=== PATIENT | male | born 1955 | race Caucasian/White ===

== ENCOUNTER 2017-12-26 18:39 | Inpatient (IN) ==
--- NOTE | 2017-12-26 16:47 | History & Physical Report ---
History of Present Illness Date: 12/26/17 (PCP: Kyleigh) Chief complaint: Heart burn HPI: HPI-PCP Notes 62-year-old male here today with his complaining of one-week history of heartburn when he lays flat at night initially, then now at all time. She has tried OTC Nexium with minimal improvement. This pain is located on the sternum with radiation to right neck and also right arm. Denies any nausea vomiting no diaphoresis, no lightheadedness, no dizziness, no syncope presyncope. Denies any fever but has some chills. Patient has a long history of smoking. He has chronic cough, however, is coughing over the last 2-3 weeks is more pronounced with yellowish thick sputum production without any blood. Plan Because of his age, sex, diabetes mellitus, dyslipidemia as well as history of smoking, there was concern for possible cardiac( multiple risk factors for CAD) or pulmonary etiologies, therefore, he was sent the [facility] lab for D Dimer and troponin I . EKG T (non-specific) wave changes in inferior leads ( III,aVF), no old EKG for comparison. Plan Detail lab report came back later as troponin I elevated at 8.04. Pt was called at home and instructed to go to [facility] for direct admission to ICU. Discussed this case with Dr. Koenig and Jose Guadalupe Admission Hospitalist Mr. Sandoval is a 62 yo male who presented to his PCP's office today due to c/o persistent heartburn with radiation into the right arm. Due to the significantly elevated troponin, he will be admitted to the ICU for further workup. He does have significant risk factors for CAD, including family history , extensive smoking history, DM2, and hyperlipidemia. He is noted to have been admitted for r/o ACS in 2007, and was subsequently transferred to [facility] for a heart cath. Echo here at that time was unremarkable, but did show some LVH. His heart cath was reportedly negative at that time, and he was recommended to stop smoking. He reports about 10 days ago, he started having severe "heartburn." He reports radiation into his right arm, and into his right ear and jaw. He states that his worse pain was about 2 days ago, when he was unable to sleep and drank most of a bottle of Pepto-Bismol that night. He has been taking some OTC heartburn relief -Zantac- without any changes in his symptoms. His pain is quite a bit better, but he continues to have some left substernal chest discomfort at times. No N/V. No diaphoresis. He does have a productive cough, which is a bit worse than normal. He denies diagnosis of COPD or asthma, but reports he was hospitalized for "allergies" multiple times as a child. He does use an inhaler (albuterol) at home, and also has a nebulizer. 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 No definite fever, but reports that he was chilling at night over the last two nights. She states he has been exposed to strep throat, but pt. does not c/ o a sore throat or other symptoms c/w strep. He does not have any LE edema or abdominal distention. He has been admitted to the CCU for further evaluation and treatment. An EKG was obtained while I was at bedside, with no evidence of a STEMI that I can appreciate. His was present and provided collateral information. Review of Systems All systems PM: 10-point ROS was reviewed, no additional remarkable complaints except - Constitutional Constitutional: Present: chills. Absent: fever(s) - EENMT Ears: Present: ear pain Nose: Present: allergies Mouth/Throat: Absent: sore throat - Cardiovascular Cardiovascular: Present: chest pain. Absent: syncope, dyspnea on exertion, orthopnea, edema Rhythm: Present: regular rhythm - Respiratory Respiratory: Present: cough, wheezing, chest congestion, excessive phlegm production (Yellow) - Gastrointestinal Gastrointestinal: Present: change in bowel habits (Alternating constipation, diarrhea. Increase in flatulence), constipation, diarrhea, dyspepsia. Absent: abdominal pain, dysphagia, nausea, vomiting - Genitourinary Genitourinary: Present: urinary incontinence (Stress incontinence), urinary urgency - Musculoskeletal Musculoskeletal: Present: neck pain (Right side). Absent: back pain - Psychiatric Psychiatric: Present: mood swings (reported by . ) Past Medical History Medical History: Medical History Diabetes mellitus (Chronic) Hypercholesterolemia (Chronic) Allergic rhinitis (Chronic) Depression (Chronic) Medical History Updates: GERD. Mood DO. Chronic tobaccoism. Prostate CA (no chemo/XRT). Proteinuria Surgical History: L knee arthroscopy. T&A as a child. 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) Current residence: Apartment/Private Home Medications Home Medications Medication Instructions Recorded Confirmed Type Flonase (Fluticasone) 50 mcg nasal 2 spray INTRANASAL DAILY g 02/09/17 History spray blood sugar diagnostic strips See Dose Instructions .ROUTE 02/09/17 10/24/17 History .MEDSUPPLY clotrimazole-betamethasone 1 1 applicatio TOP BID #15 g 02/09/17 10/24/17 Rx %-0.05 % topical cream Zyrtec (Cetirizine) 10 mg tablet 10 mg PO DAILY #0 tab 06/07/17 10/24/17 History lisinopril 5 mg tablet 5 mg PO DAILY #90 tab 10/24/17 Rx aspirin 81 mg tablet,delayed 81 mg PO DAILY 12/03/17 12/03/17 History release bupropion HCl 100 mg tablet 100 mg PO .qd #30 tab 12/03/17 12/03/17 Rx canagliflozin 100 mg tablet 100 mg PO QAM #30 tab 12/05/17 Rx Glucophage (metformin) 1,000 mg 1,000 mg PO .COMPLEX #75 tab 12/16/17 Rx tablet Zocor (simvastatin) 40 mg tablet 20 mg PO PM #90 tab 12/16/17 Rx lithium carbonate 300 mg capsule 300 mg PO DAILY #30 cap 12/16/17 Rx albuterol sulfate HFA 90 2 puff INH QID 5 Days #8.5 g 12/26/17 12/26/17 Rx mcg/actuation aerosol inhaler Allergies Allergy/AdvReac Type Severity Reaction Status Date / Time No Known Drug Allergies Allergy Unknown Verified 12/15/15 16:23 Exam Telemetry Rhythm: Sinus Rhythm (nonspecific ST changes on EKG) - Constitutional Present: mild distress, average body habitus, cooperative (Irritable), other ( Smells very strongly of cigarette smoke) - Routine HEENT Exam Head: Present: normocephalic, atraumatic Eye: Present: EOMI, PERRL ENT: Present: mucous membranes dry. Absent: TM's clear bilaterally (Right TM very red, chronic abnormal. Possible effusion, but difficult to visualize) - Routine Neck Exam Present: supple, trachea midline. Absent: JVD, carotid bruit, tenderness, swelling - Routine Respiratory Exam Present: dyspnea (Mildly SOA with cough. Persistent, hacky cough-productive), wheezes (Faint wheezes, scattered. ). Absent: crackles - Routine Cardiovascular Exam Present: RRR, S1, S2, no murmur - Routine Abdominal Exam Present: soft, normoactive bowel sounds, non distended, non tender - Routine Extremities Exam Present: no edema, non tender, pulses intact, normal capillary refill - Routine Skin Exam Present: intact, dry, warm - Routine Neurological Exam Present: alert, oriented X3, moving all extremities, normal speech. Absent: motor deficit, altered mental status, facial asymmetry - Routine Psychiatric Exam Present: normal affect, normal thought process (Irritable. Mildly anxious) Results - Labs CBC & Chem 7: 12/26/17 17:09 12/26/17 17:09 Labs: Troponin 8.040 D-dimer normal Last A1c 7.9 - ECG Data Tracing #1 I reviewed this ECG and interpreted as documented below: SR. Nonspecific ST changes, primarily inferior leads. - Imaging and Cardiology Chest x-ray Status: image reviewed by me Additional comments: Normal per report. Reviewed films. Assessment and Plan (1) Myocardial infarction Current visit: Yes Status: Acute Assessment and Plan: Impression: AMI- Suspect Subacute URI Reactive Airway disease with likely COPD Hyperlipidemia DM2 Proteinuria Hx GERD Prolonged Tobaccoism Mood disorder, possible BPAD Plan: 12/26/17 ICU/CCU bed. Consult cardiology for further assessment. Josephine with Dr. Shi is here now to see pt. D/W Dr. Koenig- give ASA full strength. Maximize statin. Serial troponin and EKG. O2 PRN. NTG/Morphine as needed for pain. Will add PPI for hx of GI, but symptoms are likely related to the VT. He does appear to have an URI. Will add nebs and Ceftriaxone for now. Will likely be able to narrow upon dismissal. Heavy tobaccoism. He needs to stop smoking, but he is fairly dismissive of that. He is agreeable to Nicotine patch. Will also order PRN anti-anxiety medication for him as I suspect he will have significant anxiety while in the hospital based off current behaviors. Monitor BG. Hold Metformin due to likely need for HC. PRN insulin if needed. Check lithium level. Continue home meds as appropriate. DVT Prophylaxis: Lovenox GI Prophylaxis: Protonix Resuscitation Status: Full Code - Physician Narrative Physician: Umm Koenig MD Narrative: Date: 12/26/17 Time: 1849 I have independently evaluated and examined this patient. I reviewed the chart, the patient's history, and the LAUNCH OPERATOR/PA's documented findings as above. We discussed and formulated the assessment and plan as above with additions as below: Mr. Sandoval presents with "acid heartburn "for the last 7-10 days with particularly bad episode 2 nights ago at which time he had some discomfort in his chest and radiation to his right neck. He denies worsening exertional dyspnea, diaphoresis, or nausea. He has multiple cardiac risk factors including extensive family history of vascular disease, extensive personal history tobacco use, diabetes, and hyperlipidemia. EKG was reported to show subtle inferior changes earlier today and troponin in the office was 8.04. He denies chest pain per se although rubs his chest occasionally at time of my assessment. NAD, frequent forceful cough Respirations nonlabored, no wheezing present time of my exam Regular rhythm, S1-S2 Ankles without edema Chest x-ray reviewed by myself-NAD Twelve-lead EKG also reviewed by myself demonstrates sinus rhythm with inferior T-wave inversion and possibly a hint of ST elevation in the inferior leads although it is nondiagnostic. Repeat troponin 6.85. A1c 7.9 on 12/03/17. Patient reports lipids have not been done in some time. Cardiac catheterization anticipated tomorrow-procedure discussed with patient and his . Case discussed with cardiology and Dr. Benitez. Low-fat, carb controlled diet; resume Invokana. RT consult. Patient's Adriana is his alternate decision maker and the patient is a full code. Hospital Course Summary Disclaimer: The visit summary below is not to be considered part of the above Progress Note. Hospital Course: Impression: AMI- Suspect Subacute URI Reactive Airway disease with likely COPD Hyperlipidemia DM2 Proteinuria Hx GERD Prolonged Tobaccoism Mood disorder, possible BPAD Plan: 12/26/17 ICU/CCU bed. Consult cardiology for further assessment. Josephine with Dr. Shi is here now to see pt. D/W Dr. Koenig- give ASA full strength. Maximize statin. Serial troponin and EKG. O2 PRN. NTG/Morphine as needed for pain. Will add PPI for hx of GI, but symptoms are likely related to the VT. He does appear to have an URI. Will add nebs and Ceftriaxone for now. Will likely be able to narrow upon dismissal. Heavy tobaccoism. He needs to stop smoking, but he is fairly dismissive of that. He is agreeable to Nicotine patch. Will also order PRN anti-anxiety medication for him as I suspect he will have significant anxiety while in the hospital based off current behaviors. Monitor BG. Hold Metformin due to likely need for HC. PRN insulin if needed. Check lithium level. Continue home meds as appropriate.
--- NOTE | 2017-12-26 17:17 | XRay Report ---
Indication: acute DC PROCEDURE: XR chest 1V: Encounter: Initial Comparison: None Findings: Lungs are grossly clear. Azygos fissure is noted incidentally. No pleural effusion or pneumothorax. Heart size and mediastinal contours are within normal limits. Pulmonary vascularity appears normal. Overlying monitoring leads. Impression: No acute cardiopulmonary disease. .
[2017-12-26 18:20] VITALS: BMI 28.8
[~2017-12-26 18:39] MED LIST: ACETAMINOPHEN 500 MG TABLET PO PRN; ALBUTEROL 2.5mg/3ml (0.083%) NEB AEROSOL PRN; ASPIRIN 81 MG CHEWABLE TABLET PO ONE; ENOXAPARIN 40 MG/0.4 ML INJECTION SQ SCH; LORazepam 0.5 MG TABLET PO PRN; METOCLOPRAMIDE 10mg/2ml INJECTION IVP PRN; MORPHINE SULFATE 10 MG SYRINGE IVP PRN; NITROGLYCERIN 0.4 MG SUBLINGUAL TABLET SL PRN; PROCHLORPERAZINE 10 MG/2 ML INJECTION IVP PRN
[2017-12-26] MEDS: NS 1,000 ML IV SCH (18:42)
--- NOTE | 2017-12-26 18:48 | Cardiology Consult Note ---
<Josephine Hu - Last Filed: 12/27/17 09:44> History of Present Illness Consult date: 12/26/17 Requesting physician: Umm Koenig Chief complaint: indigestion History of present illness: HPI-PCP Notes 62-year-old male here today with his complaining of one-week history of heartburn when he lays flat at night initially, then now at all time. She has tried OTC Nexium with minimal improvement. This pain is located on the sternum with radiation to right neck and also right arm. Denies any nausea vomiting no diaphoresis, no lightheadedness, no dizziness, no syncope presyncope. Denies any fever but has some chills. Patient has a long history of smoking. He has chronic cough, however, is coughing over the last 2-3 weeks is more pronounced with yellowish thick sputum production without any blood. Plan Because of his age, sex, diabetes mellitus, dyslipidemia as well as history of smoking, there was concern for possible cardiac( multiple risk factors for CAD) or pulmonary etiologies, therefore, he was sent the [facility] lab for D Dimer and troponin I . EKG T (non-specific) wave changes in inferior leads ( III,aVF), no old EKG for comparison. Plan Detail lab report came back later as troponin I elevated at 8.04. Pt was called at home and instructed to go to [facility] for direct admission to ICU. Discussed this case with Dr. Koenig and Jose Guadalupe Eduardo is a 62 year old male who has a history of HTN, HLD, DM and 2ppd smoking history for 45 years who presented to his PCP Dr. Arizmendi's office today due to persistent heartburn with radiation into the right arm. Due to the his multiple risk factors he was sent to [facility] lab for D-Dimer and troponin which later showed troponin of 8.04 and he was admitted in the care of the hospitalist service. 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 He was told at the time his symptoms were consistent with GERD he was recommended to stop smoking. Echo here at that time was unremarkable, but did show some LVH. He reports about 10 days ago, he started having severe "heartburn." He reports radiation into his right arm, and into his right ear and jaw. He states that his worse pain was about 2 days ago, when he was unable to sleep and drank most of a bottle of Pepto-Bismol that night. He has been taking some OTC heartburn relief -Zantac- without any changes in his symptoms. His pain is quite a bit better, but he continues to have some left substernal chest discomfort at times. No N/V. No diaphoresis. He does have a productive cough, which is a bit worse than normal. He denies diagnosis of COPD or asthma, but reports he was hospitalized for "allergies" multiple times as a child. He does use an inhaler ( albuterol) at home, and also has a nebulizer. No definite fever, but reports that he was chilling at night over the last two nights. She states he has been exposed to strep throat, but pt. does not complain of a sore throat or other symptoms. He does not have any LE edema or abdominal distention. He has been admitted to the CCU for further evaluation and treatment. Dr. Shi is consulted due to elevated troponin and we appreciate the consult. Review of Systems - Constitutional Constitutional: Present: as per HPI - EENMT Eyes: Absent: change in vision Balance: Absent: vertigo Mouth/Throat: Present: as per HPI - Cardiovascular Cardiovascular: Present: chest pain. Absent: palpitations, syncope, dyspnea on exertion, orthopnea, edema Rhythm: Absent: abnormal rhythm Vascular: Absent: pedal edema - Respiratory Respiratory: Present: as per HPI - Gastrointestinal Gastrointestinal: Present: as per HPI - Genitourinary Genitourinary: Absent: dysuria - Integumentary/Breasts Integumentary: Absent: rash - Neurological Neurological: Absent: dizziness - Endocrine Endocrine: Absent: palpitations [facility] Medical History Diabetes mellitus (Chronic Medical) Hypercholesterolemia (Chronic Medical) Allergic rhinitis (Chronic Medical) Depression (Chronic Medical) Medical History Updates: GERD. Mood DO. Chronic tobaccoism. Prostate CA (no chemo/XRT). Proteinuria Surgical History: L knee arthroscopy. T&A as a child. 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 Current residence: Apartment/Private Home Medications Home Medications Medication Instructions Recorded Confirmed Type Flonase (Fluticasone) 50 mcg nasal 2 spray INTRANASAL DAILY PRN g 02/09/1706/05 History spray Zyrtec (Cetirizine) 10 mg tablet 10 mg PO DAILY #0 tab 06/07/17 12/26/17 History lithium carbonate 300 mg capsule 300 mg PO DAILY #30 cap 12/16/17 12/26/17 Rx Albuterol HFA Inhaler [Ventolin 2 puff ORAL INH Q4HR PRN 12/26/17 12/26/17 History Hfa 90 mcg/actuation] Aspirin *EC* [Ecotrin] 1 tab PO DAILY 12/26/17 12/26/17 History BuPROPion IR [Wellbutrin Ir] 100 mg PO BID 12/26/17 12/26/17 History Canagliflozin [Invokana] 100 mg PO DAILY 12/26/17 12/26/17 History L. Acidophilus/Bifid. Animalis 2 each PO DAILY 12/26/17 12/26/17 History [Super Probiotic Capsule] Lisinopril [Prinivil] 5 mg PO DAILY 12/26/17 12/26/17 History Metformin HCl [Glucophage] 1,000 mg PO BID 12/26/17 12/26/17 History Metformin HCl [Glucophage] 500 mg PO NOON 12/26/17 12/26/17 History Sildenafil [Viagra] 20 mg PO PRN 12/26/17 12/26/17 History Simvastatin [Zocor] 40 mg PO DAILY 12/26/17 12/26/17 History Allergies Allergy/AdvReac Type Severity Reaction Status Date / Time No Known Drug Allergies Allergy Unknown Verified 12/15/15 16:23 Exam Vital signs: Pulse Rate 78 12/26/17 17:15 Respiratory Rate 37 H 12/26/17 17:15 Blood Pressure 105/64 12/26/17 17:15 Pulse Oximetry 96 12/26/17 17:15 - Constitutional mild distress, average body habitus, cooperative - Routine HEENT Exam Head: Present: normocephalic ENT: Present: mucous membranes dry - Routine Neck Exam Absent: JVD, carotid bruit - Routine Chest/Breast/Axilla Exam Chest wall: Absent: tenderness, pacemaker - Routine Respiratory Exam Present: dyspnea, wheezes (throughout) Comments: frequent cough - Routine Cardiovascular Exam Present: RRR, no murmur. Absent: JVD - Routine Abdominal Exam Present: soft, non tender - Routine Extremities Exam Present: no edema, pulses intact - Routine Skin Exam Present: intact, dry - Routine Neurological Exam Present: alert, oriented X3 - Routine Psychiatric Exam Present: normal affect, normal thought process, agitated Results 12/27/17 04:15 12/27/17 04:15 Cardiac Enzymes 12/26/17 12/26/17 Range/Units 17:09 17:09 AST 42 (17-59) U/L Troponin I 6.850 H (0-0.12) ng/ml CBC 12/26/17 Range/Units 17:09 WBC 12.4 H (4.5-11.0) T/MM3 RBC 4.18 L (4.50-5.90) M/MM3 Hgb 13.2 L (13.5-17.5) GM/DL Hct 39.1 L (41-53) % Plt Count 211 (130-400) T/MM3 Neut # (Auto) 8.6 H (1.8-7.7) T/MM3 Lymph # (Auto) 2.2 (1-4.8) T/MM3 Jay # (Auto) 1.1 H (0-0.8) T/MM3 Eos # (Auto) 0.4 (0-0.5) T/MM3 Baso # (Auto) 0.0 (0-0.2) T/MM3 Comprehensive Metabolic Panel 12/26/17 Range/Units 17:09 Sodium 140 (134-144) MEQ/L Potassium 4.3 (3.6-5) MEQ/L Chloride 104 (98-107) MEQ/L Carbon Dioxide 26 (22-30) MEQ/L BUN 21.0 H (9-20) MG/DL Creatinine 1.0 (0.8-1.5) mg/dL Glucose 313 H (75-110) MG/DL Calcium 9.4 (8.4-10.2) MG/DL AST 42 (17-59) U/L ALT 20 (1-50) U/L Alkaline Phosphatase 70 (38-126) U/L Total Protein 6.3 (6.3-8.2) g/dL Albumin 4.0 (3.5-5.0) g/dL Intake and Output 12/26/17 12/26/17 12/26/17 06:59 14:59 22:59 Other: Weight 189 lb 2.506 oz Patient Weight 12/27/17 06:59 Weight 189 lb 2.506 oz - Imaging and Cardiology Imaging & Cardiology Narrative: Date of Exam: 12/26/17 Ordering Provider: Umm Koenig MD Type of Exam(s): XR chest 1V Reason for Exam(s): acute UT Indication: acute UT PROCEDURE: XR chest 1V: Encounter: Initial Comparison: None Findings: Lungs are grossly clear. Azygos fissure is noted incidentally. No pleural effusion or pneumothorax. Heart size and mediastinal contours are within normal limits. Pulmonary vascularity appears normal. Overlying monitoring leads. Impression: No acute cardiopulmonary disease. 12/26/17 18:53 EKG interpretations - Dysrhythmias Sinus rhythms and dysrhythmias: sinus rhythm - Blocks, axis, hypertrophy, ST abn Repolarization changes or abnormalities: nonspecific abnormality, ST segment, and/or T wave Assessment and Plan - Assessment and Plan (1) Myocardial infarction Status: Acute Denies active chest pain - Trend serial troponin 1) 8.04, 2) 6.850 - trending down - EKG: SR with NS STT changes - NPO after early breakfast for LHC tomorrow afternoon - Lovenox 1mg/kg SQ BID - Lipid panel - Aspirin, home Lisinopril - Start Metoprolol 12.5mg BID and Atorvastatin 80mg at HS (2) Upper respiratory infection Status: Acute Nebs/ ABX per hospitalist team (3) Diabetes mellitus Status: Chronic Hold Metformin for now for HC - May resume 48 hours post cath - H1C 7.9 - management per attending (4) Hypercholesterolemia Status: Chronic - Lipid panel - Change statin to Atorvastatin 80mg daily (5) Mood disorder Status: Chronic per attending (6) GERD (gastroesophageal reflux disease) Status: Chronic per attending (7) Tobacco dependence Status: Chronic per attending - Assessment and Plan UT: Denies active chest pain - Trend serial troponin 1) 8.04, 2) 6.850 - trending down - EKG: SR with NS STT changes - NPO after early breakfast for LHC tomorrow afternoon - Lovenox 1mg/kg SQ BID - Lipid panel - Aspirin, home Lisinopril - Start Metoprolol 12.5mg BID and Atorvastatin 80mg at HS URI:Nebs/ ABX per hospitalist team DM:Hold Metformin for now for HC - May resume 48 hours post cath - H1C 7.9 - management per attending HLD: - Lipid panel - Change statin to Atorvastatin 80mg daily Tobacco dependence:per attending Mood disorder:per attending GERD:per attending Thank you for allowing us to participate in the care of this patient, we will follow along with you Hospital Course Summary Disclaimer: The visit summary below is not to be considered part of the above Progress Note. Hospital Course: Impression: AMI- Suspect Subacute URI Reactive Airway disease with likely COPD Hyperlipidemia DM2 Proteinuria Hx GERD Prolonged Tobaccoism Mood disorder, possible BPAD Plan: 12/26/17 ICU/CCU bed. Consult cardiology for further assessment. Josephine with Dr. Shi is here now to see pt. D/W Dr. Koenig- give ASA full strength. Maximize statin. Serial troponin and EKG. O2 PRN. NTG/Morphine as needed for pain. Will add PPI for hx of GI, but symptoms are likely related to the UT. He does appear to have an URI. Will add nebs and Ceftriaxone for now. Will likely be able to narrow upon dismissal. Heavy tobaccoism. He needs to stop smoking, but he is fairly dismissive of that. He is agreeable to Nicotine patch. Will also order PRN anti-anxiety medication for him as I suspect he will have significant anxiety while in the hospital based off current behaviors. Monitor BG. Hold Metformin due to likely need for HC. PRN insulin if needed. Check lithium level. Continue home meds as appropriate. 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 Angina Yes Heart Murmur Yes Hypertension Yes Myocardial Infarction Yes: Reason for this hospitalization 12/26/17 Asthma Yes Chronic Obstructive Pulmonary Yes Disease (COPD) Diabetes Mellitus Type 2 Yes Gastroesophageal Reflux Yes Disease Depression Yes Clinic Medical History Diabetes mellitus (Chronic Medical) Hypercholesterolemia (Chronic Medical) Allergic rhinitis (Chronic Medical) Depression (Chronic Medical) Family History: Family History Mother Cancer of lung Father , at age 73 High blood pressure CAD (coronary artery disease) Diabetes Heart attack x2 Exam Vital signs: Temperature 98.8 F 12/27/17 14:00 Pulse Rate 78 12/27/17 21:00 Respiratory Rate 37 H 12/27/17 21:00 Blood Pressure 100/62 12/27/17 21:00 Pulse Oximetry 94 12/27/17 21:00 Results 12/27/17 04:15 12/27/17 04:15 Assessment and Plan - Attestation Attestation Narrative: 01/02/18 13:34 Recommendation After examining the patient I agree with the above assessment. I am involved in the formulation of the patient's plan of care. - Assessment and Plan (1) Hypercholesterolemia Status: Chronic (2) Diabetes mellitus Status: Chronic (3) Mood disorder Status: Chronic (4) Myocardial infarction Status: Acute (5) Upper respiratory infection Status: Acute (6) GERD (gastroesophageal reflux disease) Status: Chronic (7) Tobacco dependence Status: Chronic Hospital Course Summary Disclaimer: The visit summary below is not to be considered part of the above Progress Note.
[2017-12-26] MEDS: ALBUTEROL/IPRATROPIUM 2.5mg-0.5mg/3ml NEB AEROSOL SCH (19:13)
[2017-12-26] MEDS: CEFTRIAXONE 1 G in NS 100 ML IV SCH (19:55)
[2017-12-26] MEDS: NICOTINE 21 MG PATCH TD SCH (19:59)
[2017-12-26] MEDS: INSULIN ASPART 100unit/ml INJECTION SQ PRN (21:10)
[2017-12-26] MEDS: ATORVASTATIN 40 MG TABLET PO SCH (21:13)
[2017-12-26] MEDS: ENOXAPARIN 100 MG/ML INJECTION SQ SCH (21:30)
[2017-12-27] MEDS: NS 1,000 ML IV SCH ×2 (06:06→14:02)
[2017-12-27] MEDS ORDERED: PANTOPRAZOLE 40 MG TABLET PO SCH (06:30)
[2017-12-27] MEDS: INSULIN ASPART 100unit/ml INJECTION SQ PRN ×3 (06:51→21:11)
[2017-12-27] MEDS ORDERED: CANAGLIFLOZIN 100mg TABLET PO SCH (07:30)
[2017-12-27] MEDS: ALBUTEROL/IPRATROPIUM 2.5mg-0.5mg/3ml NEB AEROSOL SCH ×3 (08:14→17:28)
[2017-12-27] MEDS ORDERED: ASPIRIN 81 MG CHEWABLE TABLET PO SCH (09:00)
[2017-12-27] MEDS ORDERED: FLUTICASONE NASAL SPRAY 50mcg EA NOSTRIL SCH (09:00)
[2017-12-27] MEDS ORDERED: [UNRECOGNIZED DRUG - OTHER] PO SCH (09:00)
[2017-12-27] MEDS ORDERED: CETIRIZINE 10 MG TABLET PO SCH (09:00)
[2017-12-27] MEDS: ENOXAPARIN 100 MG/ML INJECTION SQ SCH ×2 (09:15→20:08)
[2017-12-27] MEDS ORDERED: LISINOPRIL 5 MG TABLET PO SCH (10:00)
[2017-12-27] MEDS ORDERED: HEPARIN 1,000 UNITS/500 ML PREMIX (*CVL ONLY*) IV ONE ×2 (10:52→13:05)
--- NOTE | 2017-12-27 12:18 | Echocardiogram ---
DATE OF PROCEDURE 12/26/2017 REFERRING PHYSICIAN Umm Koenig MD This is a two-dimensional echo with spectral Doppler, color-flow and M-mode. It was obtained in a patient with non-STEMI. Left atrium is mildly dilated. Left ventricle end-diastolic dimension is normal. Left ventricle wall thickness mildly increased. LV systolic function is normal with ejection fraction of 63%. Right atrium is normal. Right ventricle is normal. Aortic root dimension is normal. Mitral valve is morphologically normal with mild mitral regurgitation. Aortic valve is a trileaflet structure with mild fibrocalcific changes with no stenosis or insufficiency. Tricuspid valve shows mild tricuspid regurgitation with mild pulmonary hypertension with estimated pulmonary artery systolic pressure of 40. Pulmonary valve shows no pulmonary insufficiency. There is no pericardial effusion. IMPRESSION 1. Normal LV systolic function with ejection fraction of 63%. 2. Mild left atrial dilation. 3. Mild left ventricular hypertrophy. 4. Mild mitral regurgitation. 5. Aortic sclerosis. 6. Mild tricuspid regurgitation with mild pulmonary hypertension with estimated pulmonary artery systolic pressure of 40. MTDD
[2017-12-27] MEDS ORDERED: Verapamil 5 MG/2 ML VIAL ONE (12:36)
[2017-12-27] MEDS ORDERED: NITROGLYCERIN 50MG INJECTION IV ONE (12:36)
[2017-12-27] MEDS ORDERED: LIDOCAINE 1% (10mg/ml) 30ml SDV INJ ONE (12:37)
[2017-12-27] MEDS ORDERED: HEPARIN 1,000unit/ml INJECTION 10ml ONE (12:37)
[2017-12-27] MEDS ORDERED: FentaNYL 100 MCG/2 ML INJECTION ONE (12:41)
[2017-12-27] MEDS ORDERED: MIDAZOLAM 2mg/2ml INJECTION ONE (12:41)
[2017-12-27] MEDS ORDERED: NS 1,000 ML ONE (13:35)
--- NOTE | 2017-12-27 13:50 | Progress Note ---
- Date 12/27/17 Subjective: Mr. Sandoval was seen with family members at bedside. He reports having some minor discomfort in his chest couple times over night but not enough that he called it to anyone's attention. He denies accompanying dyspnea, nausea, or radiation to the neck. He denies recurrent "acid heartburn". He is coughing at the time of assessment but reports he has a chronic smoker's cough and its the same coffee always has. He denies lightheadedness that has been up in the room without difficulty. Objective Vital signs: Temperature 98.9 F 12/27/17 10:00 Pulse Rate 72 12/27/17 10:00 Respiratory Rate 12 12/27/17 12:19 Blood Pressure 98/59 12/27/17 10:00 Pulse Oximetry 98 - RA 12/27/17 12:19 NAD, alert, forceful cough Conjugate gaze, EOMI, conjunctiva clear, sclera anicteric Respirations nonlabored, good airflow, breath sounds clear Regular rhythm, S1-S2 Abdomen soft, nontender, bowel sounds present Extremities without edema Moving all extremities well Calm, cooperative Height/Weight/BMI: Height 1.73 m Weight 86.7 kg Body Mass Index 28.8 Results - Labs CBC & Chem 7: 12/27/17 04:15 12/27/17 04:15 Labs: troponin 6.85-7.0-7.15-5.76 Total cholesterol 129, triglycerides 82, LDL 79.6, HDL 33 [place] level <0.2 Liver enzymes normal Microbiology Results: Microbiology 12/26/17 19:45 Sputum, Expectorated Gram Stain - rare neutrophils, moderate epithelial cells; few gram-positive cocci in pairs and clusters, few gram- negative rods 12/26/17 19:45 Sputum, Expectorated Sputum Culture - Preliminary Early growth - Echocardiogram History of Echocardiogram: Echo obtained 12/26/17 : 1. Normal LV systolic function with ejection fraction of 63%. 2. Mild left atrial dilation. 3. Mild left ventricular hypertrophy. 4. Mild mitral regurgitation. 5. Aortic sclerosis. 6. Mild tricuspid regurgitation with mild pulmonary hypertension with estimated pulmonary artery systolic pressure of 40. - ECG Data Tracing #2 I reviewed this ECG and interpreted as documented below: (EKG this morning revealed sinus rhythm and T-wave inversion in the inferior leads-no change from yesterday) Assessment and Plan (1) Myocardial infarction Current visit: Yes Status: Acute Assessment and Plan: Impression: AMI- Suspect Subacute URI Reactive Airway disease with likely COPD Hyperlipidemia DM2 Proteinuria Hx GERD Prolonged Tobaccoism Mood disorder, possible BPAD Tobacco use-chronic Plan: For cardiac catheterization early afternoon. Troponin up slightly overnight but again down this morning. Continue aspirin, metoprolol, lisinopril, and therapeutic Lovenox pending catheter results. 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 Blood sugars elevated overnight; resume metformin tomorrow, continue corrective insulin in addition to Invokana. Blood pressure well-controlled. Sputum sample not suggestive of infection, discontinue IV antibiotics. d/w cardiiology DVT Prophylaxis: SCD's, Lovenox Resuscitation Status: Full Code - Physician Narrative Narrative: Date: 12/27/17 Time: 1346 Hospital Course Summary Disclaimer: The visit summary below is not to be considered part of the above Progress Note. Hospital Course: Impression: AMI- Suspect Subacute URI Reactive Airway disease with likely COPD Hyperlipidemia DM2 Proteinuria Hx GERD Prolonged Tobaccoism Mood disorder, possible BPAD Plan: 12/26/17 ICU/CCU bed. Consult cardiology for further assessment. Josephine with Dr. Shi is here now to see pt. D/W Dr. Koenig- give ASA full strength. Maximize statin. Serial troponin and EKG. O2 PRN. NTG/Morphine as needed for pain. Will add PPI for hx of GI, but symptoms are likely related to the AL. He does appear to have an URI. Will add nebs and Ceftriaxone for now. Will likely be able to narrow upon dismissal. Heavy tobaccoism. He needs to stop smoking, but he is fairly dismissive of that. He is agreeable to Nicotine patch. Will also order PRN anti-anxiety medication for him as I suspect he will have significant anxiety while in the hospital based off current behaviors. Monitor BG. Hold Metformin due to likely need for HC. PRN insulin if needed. Check lithium level. Continue home meds as appropriate. 12/27/17 For cardiac catheterization early afternoon. Troponin up slightly overnight but again down this morning. Continue aspirin, metoprolol, lisinopril, and Lovenox pending catheter results. Echo was normal systolic function, mild LVH, mild MR, mild TR and mild pulmonary hypertension-PAP 40. 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 Blood sugars elevated overnight; resume metformin tomorrow, continue corrective insulin in addition to Invokana. Blood pressure well-controlled. Sputum sample unremarkable, IV antibiotics discontinued.
[2017-12-27] MEDS ORDERED: METOCLOPRAMIDE 10mg/2ml INJECTION IVP PRN (13:55)
[2017-12-27] MEDS ORDERED: ACETAMINOPHEN 325 MG TABLET PO PRN (13:55)
[2017-12-27] MEDS ORDERED: NITROGLYCERIN 0.4 MG SUBLINGUAL TABLET SL PRN (13:55)
[2017-12-27] MEDS ORDERED: BISACODYL 10 MG SUPPOSITORY RECTALLY PRN (13:55)
[2017-12-27] MEDS ORDERED: ATROPINE 1 MG/ML INJECTION IVP PRN (13:55)
[2017-12-27] MEDS ORDERED: Bisacodyl EC TAB 5 MG TABLET PO PRN (13:55)
[2017-12-27] MEDS ORDERED: MORPHINE SULFATE 4mg INJECTION IVP PRN ×2 (13:55)
[2017-12-27] MEDS ORDERED: HYDROCODONE/APAP 5mg/325mg TABLET PO PRN (13:55)
[2017-12-27] MEDS ORDERED: PROMETHAZINE 25 MG INJECTION IVP PRN (13:55)
[2017-12-27] MEDS ORDERED: LORazepam 0.5 MG TABLET PO PRN (13:55)
[2017-12-27] MEDS ORDERED: ONDANSETRON 4 MG/2 ML INJECTION IVP PRN (13:55)
[2017-12-27] MEDS ORDERED: MAG-AL + SIM ORAL LIQUID 30ml PO PRN (13:55)
--- NOTE | 2017-12-27 14:24 | Cardiac Catheterization Report ---
DATE OF PROCEDURE December 27, 2017 REFERRING PHYSICIAN Brennan Arizmendi MD INDICATIONS The patient is a 62-year-old gentleman who was admitted with non-STEMI and was referred for further evaluation by cardiac catheterization and possible intervention. INFORMED CONSENT Informed consent was obtained after explaining the procedure and the potential risks to the patient who agreed to proceed with the procedure. PROCEDURE 1. Left heart catheterization. 2. Coronary angiography. 3. Left ventriculography. TECHNIQUE He was prepped and draped in the usual sterile techniques. Conscious sedation was performed using Versed and fentanyl. 1% lidocaine was used for local anesthesia. Using modified Seldinger technique, arterial access was obtained into the right radial artery with placement of a 6-Haitian arterial sheath. 3000 units of heparin, 300 mcg of nitroglycerin, and 2.5 mg of verapamil were given through the arterial sheath. LEFT VENTRICULOGRAPHY Left ventriculography in single-plane ROBLES shallow projection showed normal LV systolic function with ejection fraction of about 65% with no mitral regurgitation or gradient across the aortic valve. LVEDP was about 17. CORONARY ANGIOGRAPHY Left main had about 30% stenosis and bifurcated into left anterior descending and left circumflex arteries. Left anterior descending artery had ostial 70% stenosis. Remaining course of LAD was irregular with no stenosis greater than 20-30%. Left circumflex artery also had proximal 60-70% stenosis with no other significant lesions. Right coronary artery was occluded which appeared to be the dominant vessel with [id number] collaterals. The patient tolerated the procedure well with no complications. IMPRESSION 1. Multivessel coronary artery disease as described above. 2. Normal LV systolic function with ejection fraction of 65%. PLAN Will transfer and consult surgery for possible coronary artery bypass graft. EDELMIRA
[2017-12-27 17:43] VITALS: TEMP 98.8
[2017-12-27 19:53] VITALS: O2SAT 94
[2017-12-27] MEDS ORDERED: NICOTINE PATCH REMOVAL TD SCH (20:00)
[2017-12-27] MEDS: NICOTINE 21 MG PATCH TD SCH (20:08)
[2017-12-27] MEDS: ATORVASTATIN 40 MG TABLET PO SCH (20:09)
[2017-12-27] MEDS: CEFTRIAXONE 1 G in NS 100 ML IV SCH (20:09)
[2017-12-27 21:03] VITALS: PULSE 78
[2017-12-27 21:18] VITALS: BP 100/62; RESP 37
[2017-12-28] MEDS ORDERED: ASPIRIN *EC* 81 MG TABLET PO SCH (09:00)
--- NOTE | 2017-12-28 18:26 | Discharge Summary ---
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 Normal LV systolic function with ejection fraction of 63%. 2. Mild left atrial dilation. 3. Mild left ventricular hypertrophy. 4. Mild mitral regurgitation. 5. Aortic sclerosis. 6. Mild tricuspid regurgitation with mild pulmonary hypertension with estimated pulmonary artery systolic pressure of 40. Cardiac catheterization on 12/27/17: LEFT VENTRICULOGRAPHY Left ventriculography in single-plane ROBLES shallow projection showed normal LV systolic function with ejection fraction of about 65% with no mitral regurgitation or gradient across the aortic valve. LVEDP was about 17. CORONARY ANGIOGRAPHY Left main had about 30% stenosis and bifurcated into left anterior descending and left circumflex arteries. Left anterior descending artery had ostial 70% stenosis. Remaining course of LAD was irregular with no stenosis greater than 20-30%. Left circumflex artery also had proximal 60-70% stenosis with no other significant lesions. Right coronary artery was occluded which appeared to be the dominant vessel with [id number] collaterals. The patient tolerated the procedure well with no complications. IMPRESSION 1. Multivessel coronary artery disease as described above. 2. Normal LV systolic function with ejection fraction of 65%. - Laboratory Labs: 12/27/17 04:15 12/27/17 04:15 - Microbiology Microbiology 12/26/17 19:45 Sputum, Expectorated Gram Stain -rare WBCs, moderate epithelial cells, few gram-positive cocci in pairs and clusters; few gram- negative rods 12/26/17 19:45 Sputum, Expectorated Sputum Culture - Preliminary Escherichia coli History of Present Illness HPI: Admission Hospitalist Mr. Sandoval is a 62 yo male who presented to his PCP's office today due to c/o persistent heartburn with radiation into the right arm. Due to the significantly elevated troponin, he will be admitted to the ICU for further workup. He does have significant risk factors for CAD, including family history , extensive smoking history, DM2, and hyperlipidemia. He is noted to have been admitted for r/o ACS in 2007, and was subsequently transferred to [facility] for a heart cath. Echo here at that time was unremarkable, but did show some LVH. His heart cath was reportedly negative at that time, and he was recommended to stop smoking. He reports about 10 days ago, he started having severe "heartburn." He reports radiation into his right arm, and into his right ear and jaw. He states that his worse pain was about 2 days ago, when he was unable to sleep and drank most of a bottle of Pepto-Bismol that night. He has been taking some OTC heartburn relief -Zantac- without any changes in his symptoms. His pain is quite a bit better, but he continues to have some left substernal chest discomfort at times. No N/V. No diaphoresis. He does have a productive cough, which is a bit worse than normal. He denies diagnosis of COPD or asthma, but reports he was hospitalized for "allergies" multiple times as a child. He does use an inhaler (albuterol) at home, and also has a nebulizer. 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 No definite fever, but reports that he was chilling at night over the last two nights. She states he has been exposed to strep throat, but pt. does not c/ o a sore throat or other symptoms c/w strep. He does not have any LE edema or abdominal distention. Patient was seen by his primary care physician earlier today where EKG demonstrated some inferior changes and he was sent to the lab for d-dimer and troponin. Troponin was reported to be 8.04 and patient was referred for direct admission to the CCU. An EKG was obtained while I was at bedside, with no evidence of a STEMI that I can appreciate. His was present and provided collateral information. Objective Vital signs: Temperature 98.8 F 12/27/17 14:00 Pulse Rate 78 12/27/17 21:00 Respiratory Rate 37 H 12/27/17 21:00 Blood Pressure 100/62 12/27/17 21:00 Pulse Oximetry 94 12/27/17 21:00 Regular rhythm, S1 and S2 Respirations nonlabored, good airflow, breath sounds clear Height/Weight/BMI: Height 1.73 m Weight 86.7 kg Body Mass Index 28.8 Hospital Course This is a general summary of the patient's hospital course. For more details refer to the complete medical record. Hospital course: Admission- 12/26/17 ICU/CCU bed. Consult cardiology for further assessment. Josephine with Dr. Shi is here now to see pt. D/W Dr. Koenig- give ASA full strength. Maximize statin. Serial troponin and EKG. O2 PRN. NTG/Morphine as needed for pain. Will add PPI for hx of GI, but symptoms are likely related to the OH. He does appear to have an URI. Will add nebs and Ceftriaxone for now. Will likely be able to narrow upon dismissal. Heavy tobaccoism. He needs to stop smoking, but he is fairly dismissive of that. He is agreeable to Nicotine patch. Will also order PRN anti-anxiety medication for him as I suspect he will have significant anxiety while in the hospital based off current behaviors. Monitor BG. Hold Metformin due to likely need for HC. PRN insulin if needed. Check lithium level. Continue home meds as appropriate. 12/27/17 Troponin up slightly overnight but again down this morning. Continue aspirin, metoprolol, lisinopril, and Lovenox pending catheter results. Echo was normal systolic function, mild LVH, mild MR, mild TR and mild pulmonary hypertension-PAP 40. Nicotine patch for chronic tobacco use disorder Converted to high intensity statin on admission; lipids relatively well controlled [employer]. Blood sugars elevated overnight; resume metformin tomorrow, continue corrective insulin in addition to Invokana. Blood pressure well-controlled. Sputum sample unremarkable, IV antibiotics discontinued. Cardiac catheterization completed early afternoon demonstrating triple-vessel disease with 100% occlusion of the right and 70% ostial lesion LAD. Bypass surgery recommended, Cardiology coordinating transfer to [place]. Transfer delayed due to bed availability until early evening at which time patient transferred to [place]. Cardiothoracic surgery consultation anticipated. Resuscitation Status: Full Code Discharge Plan - Discharge Disposition Discharge Date: 12/27/17 Disposition: 02 To [facility] Acute Care *Condition: Stable Reason For Visit (Visit label in EMR): OH - Discharge Medications *Discharge Medications: No Action Canagliflozin [Invokana] 100 mg PO DAILY L. Acidophilus/Bifid. Animalis [Super Probiotic Capsule] 2 each PO DAILY Sildenafil [Viagra] 20 mg PO PRN Simvastatin [Zocor] 40 mg PO DAILY Lisinopril [Prinivil] 5 mg PO DAILY Metformin HCl [Glucophage] 500 mg PO NOON Metformin HCl [Glucophage] 1,000 mg PO BID Aspirin *EC* [Ecotrin] 1 tab PO DAILY Albuterol HFA Inhaler [Ventolin Hfa 90 mcg/actuation] 2 puff ORAL INH Q4HR PRN PRN Reason: Shortness Of Air/Wheezing BuPROPion IR [Wellbutrin Ir] 100 mg PO BID Flonase (Fluticasone) 50 mcg nasal spray 2 spray INTRANASAL DAILY PRN g PRN Reason: Nasal Congestion Zyrtec (Cetirizine) 10 mg tablet 10 mg PO DAILY #0 tab lithium carbonate 300 mg capsule 300 mg PO DAILY #30 cap - Discharge Packet/Instructions *Diet: Resume heart healthy diet. *Activity: Limit activity for 2 days. No lifting more than 10 pounds, no pushing or pulling for [address], operate machinery or drink alcohol for 2 days. *Pain Management/Treatment: Over the counter pain medication if needed. *Wound Care: Remove dressing after 24 hours. Keep site clean and dry. No tub baths or swimming for 1 week. You may shower. *Expected Signs/Symptoms: Bruising and tenderness at the site. *Notify Physician if: Site is bleeding, abnormal drainage, increased pain or fever of 101.5 or more. *During Business Hours Contact: Call Dr. Shi's office at [phone]. *After Business Hours Contact: Please call [phone] and have the coordinate measuring machine operator page the physician. *Pending Lab/Results: No Pending Lab - Referrals/Follow Up - Patient Handouts Patient Handouts: Myocardial Infarction (DC) - Dismissal Complete Discharge Instructions are:: Complete Physician Narrative - Narrative Attestation Narrative: Date: 12/28/17 Time: 1820
== END 2017-12-27 21:18 | disposition short-term general hospital (02) | DRG 282 ==
LOC: CCU
PROVIDERS: ADMIT Internal Medicine; ATTEND Internal Medicine